=== PATIENT | female | born 1980 | race Hispanic/Latino ===

== ENCOUNTER 2017-07-02 07:08 | Day surgery (SDC) | payer BC ==
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
--- NOTE | 2017-07-02 07:57 | Anesthesia Day of Surgery ---
Anesthesia Day of Surgery - Day of Surgery Patient Examined: Yes Patient H&P Reviewed: Yes Patient is NPO: Yes
[2017-07-02] MEDS ORDERED: LACTATED RINGERS 1,000 ML IV SCH (08:00)
[2017-07-02] MEDS ORDERED: VERSED IV NR (08:00)
[2017-07-02] MEDS ORDERED: PEPCID IV NR (08:00)
[2017-07-02] MEDS ORDERED: NACL BACTERIOSTATIC INFILTRATI ONE (08:02)
[2017-07-02] MEDS ORDERED: DECADRON ONE ×2 (09:09→09:11)
[2017-07-02] MEDS ORDERED: XYLOCAINE MPF 2% ONE (09:09)
[2017-07-02] MEDS ORDERED: DIPRIVAN 10 MG/ML IV ONE (09:09)
[2017-07-02] MEDS ORDERED: DILAUDID ONE ×2 (09:11→11:07)
[2017-07-02] MEDS ORDERED: ZOFRAN ONE (09:11)
[2017-07-02] MEDS ORDERED: SILVER NITRATE TP ONE (09:53)
[2017-07-02] MEDS ORDERED: ROBINUL ONE (10:12)
[2017-07-02] MEDS: DILAUDID IV PRN ×4 (11:05→11:35)
[2017-07-02] MEDS ORDERED: DILAUDID IV PRN (11:11)
[2017-07-02] MEDS ORDERED: PERCOCET 5/325 PO ONE (11:14)
[2017-07-02] MEDS ORDERED: PERCOCET 5/325 PO PRN (11:23)
[2017-07-02] MEDS ORDERED: PERCOCET 5/325 ONE (11:38)
[2017-07-02 13:00] VITALS: BP 118/77
--- NOTE | 2017-07-02 13:21 | Post Anesthesia Evaluation ---
- Post Anesthesia Evaluation Patient Participated: Yes Airway Patent: Yes Stable Respiratory Function: Yes Nausea/Vomiting: No Temp > 96.8F: Yes Pain Manageable: Yes Adequeate Hydration: Yes Anesthesia Complications: No Block Receding Appropriately: Not Applicable Patient on Ventilator: No
--- NOTE | 2017-07-02 15:08 | Operative Report ---
Operative Report Operative Report: Preoperative diagnosis: 1. Abnormal uterine bleeding 2. Thickened endometrium Postperative diagnosis: 1. Same as preoperative diagnosis 2. Endometrial polyps Procedure: 1. Hysterescopy 2. Dilatation and curettage 3. Endometrial polypectomy Anesthesia: General with LMA Surgeon: Dr. Szymanski Gastroenterology Technician: none EBL: Minimal IVF: 1 L RL Complications: none Procedure details: Risks, benefits, and alternatives of the procedure were discussed in detail with the patient which included but not limited to the risk of infection, hemorrhage requiring blood transfusion, and uterine perforation. The patient expressed understanding, her questions were answered, and she gave informed consent. She was taken to the operating room with an IV fluid infusion Ringer's lactate. In the operating room, she was placed in a dorsal supine position and given general anesthesia with LMA. She was then placed in a dorsolithotomy position. The perineum, vagina, and cervix were washed and she was prepared and draped in the usual sterile fashion. The bladder was emptied with straight catheter. Examination under anesthesia revealed normal external genitalia and vagina, the cervix was closed and posterior, no lesion, no bleeding. The uterus was 9 week size, anteverted, and mobile. The adnexae were nonpalpable. A weighted speculum was placed on the posterior vaginal wall, the anterior lip of the cervix was grasped with a single-tooth tenaculum. Endocervical curettage was done. Then, the cervical os was dilated, the hysteroscope was introduced into the uterine cavity, it revealed a thickened endometrial lining with multiple small polyps throughout the endometrial canal. The ostia was not visualized. A sharp curettage was performed with removal of multiple small polyps which were collected for pathology. Then the instruments were removed from the uterus , cervix, and vagina. The specimen which consisted of ECC, EMC, and endometrial polyps were sent to pathology. The counts of laps, needles, sponges, and instruments were correct 2. The patient tolerated the procedure well. She was awoken from the anesthesia and taken to the recovery room in a stable condition.
== END 2017-07-02 12:50 | disposition home or self-care (01) ==
LOC: OR 07:08
PROVIDERS: ATTEND Obstetrics & Gynecology
DX: N93.9 Abnormal uterine and vaginal bleeding, unspecified (principal); N84.0 Polyp of corpus uteri; E03.9 Hypothyroidism, unspecified; E78.00 Pure hypercholesterolemia, unspecified; Z87.828 Personal history of other (healed) physical injury and trauma
CPT/HCPCS: 58558; 81025; 88305; J1100; J1170; J2250; J2405; J2704; J7120